=== PATIENT | male | born 1985 | race Caucasian/White ===

== ENCOUNTER 2017-04-27 17:56 | Observation (INO) | payer OTHER ==
[2017-04-27] MEDS ORDERED: Sodium Chloride 0.9% 1000 ML 1,000 ML ONE (18:14)
[2017-04-27] MEDS ORDERED: Sodium Chloride 0.9% 1000 ML 1,000 ML IV STA (18:23)
--- NOTE | 2017-04-27 18:32 | ERPHSYRPT ---
- History of Present Illness Time Seen by Provider: 04/27/17 18:22 Source: patient Exam Limitations: no limitations Patient Subjective Stated Complaint: holly just spoke weed and began having trouble breathing states he was dizzy feels like his body was shutting down. patient is chronic drug user states he did meth yesterday, but none today , hes not sure but could be a bad batch Triage Nursing Assessment: pt alert and oriented x3, lung sounds clear, patient was breathing rapidly upon arrival upon arrival, got patient calmed down and is laying in bed breathing slowly, pupils perrla2, holly able to walk but is very shaky, skin wamr dry nad intact Physician History: This 31-year-old white male with history of substance abuse asthma. He arrives hyperventilating. Patient's tells the nurse that he had used marijuana shortly before arrival he became severely short of breath felt like his body was shutting down. States he's been using methamphetamine yesterday. No fevers no nausea no vomiting. Past medical history includes substance abuse, asthma, anxiety, bipolar, depression,. Patient apparently uses a mess amphetamines baths NARCOTICS. Past surgical history is negative Timing/Duration: today Severity: moderate Modifying Factors: Improves With: nothing Associated Symptoms: shortness of breath, malaise, weakness, No nausea, No vomiting, No abdominal pain, No heartburn, No diaphoresis, No cough, No chills, No chest pain, No fever, No headaches, No loss of appetite, No rash, No syncope , No seizure Allergies/Adverse Reactions: No Known Drug Allergies Allergy (Unverified 04/27/17 18:33) Home Medications: No Reportable Medications [No Reported Medications] 04/27/17 [History] Hx Tetanus, Diphtheria Vaccination/Date Given: No Hx Influenza Vaccination/Date Given: No Hx Pneumococcal Vaccination/Date Given: No Immunizations Up to Date: No - Review of Systems Constitutional: Weakness, No Fever, No Chills Eyes: No Symptoms Ears, Nose, & Throat: No Symptoms Respiratory: Dyspnea, No Cough, No Cyanosis, No Stridor, No Wheezing Cardiac: No Chest Pain, No Edema, No Syncope Abdominal/Gastrointestinal: No Abdominal Pain, No Nausea, No Vomiting, No Diarrhea Genitourinary Symptoms: No Dysuria Musculoskeletal: No Back Pain, No Neck Pain Skin: No Rash Neurological: No Dizziness, No Focal Weakness, No Sensory Changes Psychological: Drug Abuse, Anxiety Endocrine: No Symptoms All Other Systems: Reviewed and Negative - Past Medical History Pertinent Past Medical History: Yes Respiratory History: Asthma Psycho-Social History: Anxiety, Bipolar, Depression - Past Surgical History Past Surgical History: No - Social History Smoking Status: Current every day smoker How long have you smoked: 12 Exposure to second hand smoke: Yes Drug Use: marijuana, bath salts, methamphetamines, narcotics, other Patient Lives Alone: No - Nursing Vital Signs Nursing Vital Signs: Initial Vital Signs Temperature 97.4 F 04/27/17 17:57 Pulse Rate 88 04/27/17 17:57 Respiratory Rate 18 04/27/17 17:57 Blood Pressure 158/79 04/27/17 17:57 O2 Sat by Pulse Oximetry 99 04/27/17 17:57 Pain Scale Pain Intensity 4 - Physical Exam General Appearance: other (patient arrives very anxious and hyperventilating however he is no longer hyperventilating at this time and talks in a soft voice ) Eye Exam: PERRL/EOMI, eyes nml inspection Ears, Nose, Throat Exam: normal ENT inspection, TMs normal, pharynx normal, moist mucous membranes Neck Exam: normal inspection, non-tender, supple, full range of motion Respiratory Exam: normal breath sounds, lungs clear, No respiratory distress Cardiovascular Exam: regular rate/rhythm, normal heart sounds, normal peripheral pulses Gastrointestinal/Abdomen Exam: soft, normal bowel sounds, No tenderness, No mass Back Exam: normal inspection Extremity Exam: normal inspection, normal range of motion, pelvis stable Neurologic Exam: alert, oriented x 3, cooperative, intraoperative neuro tech II-XII nml as tested, normal mood/affect, nml cerebellar function, nml station & gait, sensation nml, No motor deficits Skin Exam: normal color, warm, dry, No rash SpO2 Interpretation: normal (99%) SpO2: 99 Oxygen Delivery: Room Air - Course Nursing assessment & vital signs reviewed: Yes EKG Interpreted by Me: RATE (78 bpm), Sinus Rhythm, NORMAL AXIS, Other (EKG normal sinus rhythm 78 bpm, normal axis, diminished QRS complexes in aVL AND UNCHANGED FROM October 28, [address] or T wave changes are noted essentially normal EKG) - Radiology Exams Chest X-ray Interpretation: Interpreted by me, Other (cxr: no acute disease process noted) Ordered Tests: Active Orders 24 hr Category Date Time Status Director Of Global Sales STAT Care 04/27/17 18:31 Active EKG-ER Only STAT Care 04/27/17 18:31 Active IV Insertion STAT Care 04/27/17 18:23 Active Pulse Oximetry (ED) STAT Care 04/27/17 18:31 Active CHEST 1 VIEW (PORTABLE) Stat Exams 04/27/17 18:24 Taken ACETAMINOPHEN Stat Lab 04/27/17 18:30 Completed CBC W DIFF Stat Lab 04/27/17 18:30 Completed CK-Creatinine Phosphokinase Stat Lab 04/27/17 18:30 Completed CMP Stat Lab 04/27/17 18:30 Completed D-DIMER QUANTITATION Stat Lab 04/27/17 18:23 Received ETHYL ALCOHOL Stat Lab 04/27/17 18:30 Completed SALICYLATE Stat Lab 04/27/17 18:30 Completed TROPONIN Q3H Lab 04/27/17 18:30 Completed TROPONIN Q3H Lab 04/27/17 21:30 Ordered TROPONIN Q3H Lab 04/28/17 00:30 Ordered TROPONIN Q3H Lab 04/28/17 03:30 Ordered TROPONIN Q3H Lab 04/28/17 06:30 Ordered UA W/RFX UR CULTURE Stat Lab 04/27/17 18:30 Completed Urine Triage Profile Stat Lab 04/27/17 18:30 Completed Respiratory Nebulizer STAT RT 04/27/17 18:34 Completed Transfer Order Routine Transfer 04/27/17 Ordered Medication Summary Discontinued Medications Generic Name Dose Route Start Last Admin Trade Name Freq PRN Reason Stop Dose Admin Albuterol/Ipratropium 3 ml 04/27/17 18:33 04/27/17 18:45 Duoneb 0.5-3 Mg/3 Ml Neb IH 04/27/17 18:34 3 ml STAT ONE Administration Albuterol/Ipratropium Confirm 04/27/17 18:42 Duoneb 0.5-3 Mg/3 Ml Neb Administered 04/27/17 18:43 Dose 3 ml IH .STK-MED ONE Sodium Chloride Confirm 04/27/17 18:14 Sodium Chloride 0.9% 1000 Ml Administered 04/27/17 18:15 Dose 1,000 mls @ ud .ROUTE .STK-MED ONE Sodium Chloride 1,000 mls @ 999 mls/hr 04/27/17 18:23 04/27/17 18:34 Sodium Chloride 0.9% 1000 Ml IV 04/27/17 19:23 999 mls/hr .Q1H1M STA Administration Lab/Rad Data: Laboratory Result Diagrams 04/27/17 18:30 04/27/17 18:30 Laboratory Results 04/27/17 04/27/17 04/27/17 Range/Units 18:30 18:30 18:30 WBC 6.8 (4.0-10.5) K/mm3 RBC 4.76 (4.1-5.6) M/mm3 Hgb 15.6 (12.5-18.0) gm/dl Hct 45.4 (42-50) % MCV 95.4 (78-100) fl MCH 32.8 H (26-32) pg MCHC 34.4 (32-36) g/dl RDW 11.8 (11.5-14.0) % Plt Count 309 (150-450) K/mm3 MPV 10.5 H (6-9.5) fl Gran % 66.9 H (36.0-66.0) % Lymphocytes % 23.9 L (24.0-44.0) % Monocytes % 8.0 (0.0-12.0) % Eosinophils % 0.6 (0.00-5.0) % Basophils % 0.6 (0.0-0.4) % Basophils # 0.04 (0-0.4) Sodium 138 (136-145) mEq/L Potassium 3.5 (3.5-5.1) mEq/L Chloride 101 (98-107) mEq/L Carbon Dioxide 26.2 (21-32) mEq/L Anion Gap 13.8 (5-15) MEQ/L BUN 9 (9-20) mg/dL Creatinine 0.94 (0.55-1.30) mg/dl Estimated GFR > 60 ML/MIN Glucose 108 (70-110) MG/DL Calcium 9.5 (8.5-10.1) mg/dL Total Bilirubin 0.40 (0.2-1.0) mg/dL AST 16 (15-37) U/L ALT 23 (12-78) U/L Alkaline Phosphatase 57 (46-116) U/L Creatine Kinase 77 (39-308) U/L Troponin I < 0.017 (0.000-0.056) ng/ml Serum Total Protein 7.7 (6.4-8.2) gm/dL Albumin 3.8 (3.4-5.0) g/dL Ur Collection Type Urine Color (YELLOW) Urine Appearance (CLEAR) Urine pH (5-6) Ur Specific Celina (1.005-1.025) Urine Protein (Negative) Urine Ketones (NEGATIVE) Urine Blood (0-5) Wolfgang/ul Urine Nitrite (NEGATIVE) Urine Bilirubin (NEGATIVE) Urine Urobilinogen (0-1) mg/dL Ur Leukocyte Esterase (NEGATIVE) Urine Culture Reflexed (NO) Urine Glucose (NEGATIVE) mg/dL Salicylates 2.8 (2.8-20.0) mg/dl Urine Opiates Level (NEGATIVE) Ur Methadone (NEGATIVE) Acetaminophen < 2.0 L (10-30) ug/ml Urine Barbiturates (NEGATIVE) Ur Phencyclidine (PCP) (NEGATIVE) Urine Amphetamine (NEGATIVE) U Benzodiazepine Level (NEGATIVE) Urine Cocaine (NEGATIVE) Urine Marijuana (THC) (NEGATIVE) Ethyl Alcohol < 0.010 (0.00-0.01) % Specimen Received 04/27/17 04/27/17 Range/Units 18:30 18:30 WBC (4.0-10.5) K/mm3 RBC (4.1-5.6) M/mm3 Hgb (12.5-18.0) gm/dl Hct (42-50) % MCV (78-100) fl MCH (26-32) pg MCHC (32-36) g/dl RDW (11.5-14.0) % Plt Count (150-450) K/mm3 MPV (6-9.5) fl Gran % (36.0-66.0) % Lymphocytes % (24.0-44.0) % Monocytes % (0.0-12.0) % Eosinophils % (0.00-5.0) % Basophils % (0.0-0.4) % Basophils # (0-0.4) Sodium (136-145) mEq/L Potassium (3.5-5.1) mEq/L Chloride (98-107) mEq/L Carbon Dioxide (21-32) mEq/L Anion Gap (5-15) MEQ/L BUN (9-20) mg/dL Creatinine (0.55-1.30) mg/dl Estimated GFR ML/MIN Glucose (70-110) MG/DL Calcium (8.5-10.1) mg/dL Total Bilirubin (0.2-1.0) mg/dL AST (15-37) U/L ALT (12-78) U/L Alkaline Phosphatase (46-116) U/L Creatine Kinase (39-308) U/L Troponin I (0.000-0.056) ng/ml Serum Total Protein (6.4-8.2) gm/dL Albumin (3.4-5.0) g/dL Ur Collection Type CCMS Urine Color YELLOW (YELLOW) Urine Appearance CLEAR (CLEAR) Urine pH 8.0 (5-6) Ur Specific Cel[place] 1.005 (1.005-1.025) Urine Protein NEGATIVE (Negative) Urine Ketones NEGATIVE (NEGATIVE) Urine Blood NEGATIVE (0-5) Wolfgang/ul Urine Nitrite NEGATIVE (NEGATIVE) Urine Bilirubin NEGATIVE (NEGATIVE) Urine Urobilinogen NORMAL (0-1) mg/dL Ur Leukocyte Esterase NEGATIVE (NEGATIVE) Urine Culture Reflexed NO (NO) Urine Glucose NEGATIVE (NEGATIVE) mg/dL Salicylates (2.8-20.0) mg/dl Urine Opiates Level NEG. (NEGATIVE) Ur Methadone NEG. (NEGATIVE) Acetaminophen (10-30) ug/ml Urine Barbiturates NEG. (NEGATIVE) Ur Phencyclidine (PCP) NEG. (NEGATIVE) Urine Amphetamine POS. (NEGATIVE) U Benzodiazepine Level NEG. (NEGATIVE) Urine Cocaine NEG. (NEGATIVE) Urine Marijuana (THC) POS. (NEGATIVE) Ethyl Alcohol (0.00-0.01) % Specimen Received 04-27-17 1835 - Progress Progress: improved Progress Note: 04/27/17 19:17 31-year-old white male with history of substance abuse arrives with complaint of feeling short of breath Patient states he's been using amphetamines yesterday today he was smoking marijuana and became severely short of breath. Patient was hyperventilating when he walked in he now is talking in a very quiet voice states he feels like he can't breathe patient has normal vital signs sensory normal chemistries essentially normal urine drug screen is positive for amphetamines [id number] when. EKG no acute changes are noted Patient was given a DuoNeb treatment chest x-ray is unremarkable. Will discuss case with Dr. Freedman 04/27/17 19:28 Patient states that he feels short of breath and weak. Lungs are clear. Labs are essentially normal with the exception of the positive marijuana and positive for methamphetamines. I've discussed the case with Dr. Freedman will place on observation continue serial troponins Continue nebulizer treatments. Will obtain a repeat acetaminophen level in 4 hours. - Departure Time of Disposition: 19:31 Departure Disposition: Observation Clinical Impression: Shortness of breath, Substance abuse, History of asthma Condition: Fair Critical Care Time: No Referrals: LAZARO ALVAREZ MD [NON-STAFF PHY W/O PRIVILEGES] -
[2017-04-27] MEDS ORDERED: DUONEB 0.5-3 MG/3 ml Neb IH ONE ×2 (18:33→18:42)
[2017-04-27 18:36] LABS: BASOPHIL % 0.6 % (0.0-0.4); Basophil (Absolute #) 0.04 (0-0.4); Eosinophil % 0.6 % (0.00-5.0); Eosinophil (Absolute #) 0.04 (0-0.5); Granulocyte Absolute (ANC) 4.54 (1.4-6.9); Granulocytes % 66.9 % (36.0-66.0); Hematocrit 45.4 % (42-50); Hemoglobin 15.6 gm/dl (12.5-18.0); Lymphocyte (Absolute #) 1.62 (1.0-4.6); Lymphocytes % 23.9 % (24.0-44.0); Mean Cell Volume 95.4 fl (78-100); Mean Corpuscular Hemoglobin 32.8 pg (26-32); Mean Corpuscular Hgb Concent. 34.4 g/dl (32-36); Mean Platelet Volume 10.5 fl (6-9.5); Monocyte (Absolute #) 0.54 (0.0-1.3); Platelet Count 309 K/mm3 (150-450); Red Blood Count 4.76 M/mm3 (4.1-5.6); Red Cell Distribution Width 11.8 % (11.5-14.0); White Blood Count 6.8 K/mm3 (4.0-10.5)
[2017-04-27 18:37] LABS: Appearance CLEAR (CLEAR); Bilirubin NEGATIVE (NEGATIVE); Blood NEGATIVE Ery/ul (0-5); Glucose NEGATIVE (NEGATIVE); Ketones NEGATIVE (NEGATIVE); Leukocyte Esterase NEGATIVE (NEGATIVE); Nitrite NEGATIVE (NEGATIVE); Protein,Urine Dip NEGATIVE (Negative); Specific Gravity 1.005 (1.005-1.025); Urobilinogen NORMAL mg/dL (0-1)
[2017-04-27 18:50] LABS: Amphetamine,Urine POS. (NEGATIVE); Barbiturate,Urine NEG. (NEGATIVE); Benzodiazepine,Urine NEG. (NEGATIVE); Cocaine,Urine NEG. (NEGATIVE); Methadone,Urine NEG. (NEGATIVE); Opiate,Urine NEG. (NEGATIVE); PCP,Urine NEG. (NEGATIVE); THC,Urine POS. (NEGATIVE)
[2017-04-27 19:04] LABS: ALBUMIN 3.8 g/dL (3.4-5.0); ALKALINE PHOSPHATASE 57 U/L (46-116); ANION GAP 13.8 MEQ/L (5-15); BLOOD UREA NITROGEN 9 mg/dL (9-20); CHLORIDE 101 mEq/L (98-107); CK-Creatinine Phosphokinase 77 U/L (39-308); Calcium 9.5 mg/dL (8.5-10.1); Carbon Dioxide 26.2 mEq/L (21-32); Creatinine 1 0.94 mg/dl (0.55-1.30); EST GLOMERULAR FILTRATION RATE > 60 ML/MIN; ETHYL ALCOHOL < 0.010 % (0.00-0.01); Glucose 108 MG/DL (70-110); Potassium 3.5 mEq/L (3.5-5.1); SALICYLATE 2.8 mg/dl (2.8-20.0); SGOT/AST 16 U/L (15-37); SGPT/ALT 23 U/L (12-78); SODIUM 138 mEq/L (136-145); Total Protein 7.7 gm/dL (6.4-8.2)
[2017-04-27 19:11] LABS: ACETAMINOPHEN < 2.0 ug/ml (10-30)
[2017-04-27] MEDS ORDERED: DUONEB 0.5-3 MG/3 ml Neb IH PRN (20:09)
[2017-04-27] MEDS: Sodium Chloride 0.9% 1000 ML 1,000 ML IV SCH (20:44)
[2017-04-27] MEDS ORDERED: Ativan 2 MG/1 ML VIAL IV PRN (20:57)
[2017-04-27] MEDS ORDERED: NICODERM CQ 14 MG TOP SCH (21:00)
[2017-04-28 04:07] LABS: ALBUMIN 3.3 g/dL (3.4-5.0); ALKALINE PHOSPHATASE 53 U/L (46-116); ANION GAP 9.9 MEQ/L (5-15); BASOPHIL % 0.7 % (0.0-0.4); BLOOD UREA NITROGEN 8 mg/dL (9-20); Basophil (Absolute #) 0.04 (0-0.4); CHLORIDE 109 mEq/L (98-107); Calcium 8.7 mg/dL (8.5-10.1); Carbon Dioxide 29.2 mEq/L (21-32); Creatinine 1 0.83 mg/dl (0.55-1.30); EST GLOMERULAR FILTRATION RATE > 60 ML/MIN; Eosinophil % 2.1 % (0.00-5.0); Eosinophil (Absolute #) 0.12 (0-0.5); Glucose 84 MG/DL (70-110); Granulocyte Absolute (ANC) 3.09 (1.4-6.9); Granulocytes % 54.1 % (36.0-66.0); Hemoglobin 14.7 gm/dl (12.5-18.0); Lymphocyte (Absolute #) 1.73 (1.0-4.6); Lymphocytes % 30.2 % (24.0-44.0); Mean Corpuscular Hemoglobin 32.7 pg (26-32); Mean Corpuscular Hgb Concent. 33.4 g/dl (32-36); Mean Platelet Volume 10.8 fl (6-9.5); Monocyte (Absolute #) 0.74 (0.0-1.3); Monocytes % 12.9 % (0.0-12.0); Platelet Count 273 K/mm3 (150-450); Potassium 4.7 mEq/L (3.5-5.1); Red Blood Count 4.49 M/mm3 (4.1-5.6); SGOT/AST 13 U/L (15-37); SGPT/ALT 17 U/L (12-78); SODIUM 143 mEq/L (136-145); Total Protein 6.1 gm/dL (6.4-8.2); White Blood Count 5.7 K/mm3 (4.0-10.5)
[2017-04-28] MEDS: Sodium Chloride 0.9% 1000 ML 1,000 ML IV SCH (06:24)
[2017-04-28 07:30] VITALS: BP 114/61; PULSE 66; O2SAT 98
--- NOTE | 2017-04-28 08:32 | XRAY ---
Indication: Short of breath. Syncope. Comparison: October 28, 2014. Portable chest again demonstrates normal heart and lungs. Bony thorax intact.
--- NOTE | 2017-04-28 08:32 | PCM.SSS ---
History of Present Illness - Chief Complaint Chief Complaint: SOB, substance abuse History of Present Illness: is a 31 year old male with no local physician who presented to the ER complaining of shortness of breath, tightness in his chest. He states he has a history of asthma and anxiety. He uses methamphetamine, was released from [facility] 2 months ago and has not had any insurance since that time so not on meds. States he was on xanax for years, he thinks he was just "freaked out". He admits to a great deal of stress, cardiac enzymes were negative, d-dimer was normal. He denies shortness of breath, has had some cough with yellow sputum production. - Review of Systems Constitutional: No Fever, No Chills Respiratory: Cough, Short Of Breath Cardiac: No Chest Pain, No Edema, No Syncope Abdominal/Gastrointestinal: No Abdominal Pain, No Nausea, No Vomiting, No Diarrhea Genitourinary Symptoms: No Dysuria Skin: No Rash All Other Systems: Reviewed and Negative Medications & Allergies Home Medications: Home Medication List Albuterol Sulfate [Albuterol Sulfate Hfa] 2 puffs IH Q4-6HPRN PRN #1 [email or web address] 04/28/17 [Rx] Azithromycin [Zithromax] 250 mg PO UD #6 tablet 04/28/17 [Rx] Allergies/Adverse Reactions: Allergies Allergy/AdvReac Type Severity Reaction Status Date / Time No Known Drug Allergies Allergy Unverified 04/27/17 18:33 - Past Medical History Past Medical History: Yes Respiratory History: Asthma Pyscho-Social History: Anxiety, Bipolar, Depression - Past Surgical History Past Surgical History: No - Social History Smoking Status: Current every day smoker How long have you smoked: 12 Exposure to second hand smoke: Yes Alcohol: Daily Drug Use: marijuana, bath salts, methamphetamines, narcotics, other - Physical Exam Vital Signs: Vital Signs - 24 hr Temp Pulse Resp BP BP Pulse Ox 04/28/17 07:29 98.1 F 66 18 114/61 98 04/28/17 07:12 94 L 04/28/17 04:00 97.6 F 81 18 128/63 97 04/27/17 23:31 98.6 F 75 20 133/64 97 04/27/17 21:01 75 16 98 04/27/17 20:17 78 18 143/68 97 04/27/17 19:40 99 04/27/17 19:04 78 16 100 04/27/17 18:50 98.5 F 78 16 143/77 100 04/27/17 18:47 98.5 F 79 18 143/77 99 04/27/17 18:31 100 04/27/17 17:57 97.4 F 88 18 158/79 99 General Appearance: no apparent distress, alert Respiratory Exam: normal breath sounds, lungs clear, No respiratory distress Cardiovascular Exam: regular rate/rhythm, normal heart sounds, normal peripheral pulses Gastrointestinal/Abdomen Exam: soft, normal bowel sounds, No tenderness, No mass Extremity Exam: normal inspection, normal range of motion, pelvis stable Skin Exam: normal color, warm, dry, No rash Results - Labs Lab/Micro Results: Lab Results-Last 24 Hours 04/27/17 04/28/17 04/28/17 Range/Units 21:09 00:19 03:20 WBC (4.0-10.5) K/mm3 RBC (4.1-5.6) M/mm3 Hgb (12.5-18.0) gm/dl Hct (42-50) % MCV (78-100) fl MCH (26-32) pg MCHC (32-36) g/dl RDW (11.5-14.0) % Plt Count (150-450) K/mm3 MPV (6-9.5) fl Gran % (36.0-66.0) % Lymphocytes % (24.0-44.0) % Monocytes % (0.0-12.0) % Eosinophils % (0.00-5.0) % Basophils % (0.0-0.4) % Basophils # (0-0.4) Sodium (136-145) mEq/L Potassium (3.5-5.1) mEq/L Chloride (98-107) mEq/L Carbon Dioxide (21-32) mEq/L Anion Gap (5-15) MEQ/L BUN (9-20) mg/dL Creatinine (0.55-1.30) mg/dl Estimated GFR ML/MIN Glucose (70-110) MG/DL Calcium (8.5-10.1) mg/dL Total Bilirubin (0.2-1.0) mg/dL AST (15-37) U/L ALT (12-78) U/L Alkaline Phosphatase (46-116) U/L Troponin I < 0.017 < 0.017 < 0.017 (0.000-0.056) ng/ml Serum Total Protein (6.4-8.2) gm/dL Albumin (3.4-5.0) g/dL 04/28/17 04/28/17 Range/Units 03:20 03:20 WBC 5.7 (4.0-10.5) K/mm3 RBC 4.49 (4.1-5.6) M/mm3 Hgb 14.7 (12.5-18.0) gm/dl Hct 44.0 (42-50) % MCV 98.0 (78-100) fl MCH 32.7 H (26-32) pg MCHC 33.4 (32-36) g/dl RDW 12.0 (11.5-14.0) % Plt Count 273 (150-450) K/mm3 MPV 10.8 H (6-9.5) fl Gran % 54.1 (36.0-66.0) % Lymphocytes % 30.2 (24.0-44.0) % Monocytes % 12.9 H (0.0-12.0) % Eosinophils % 2.1 (0.00-5.0) % Basophils % 0.7 (0.0-0.4) % Basophils # 0.04 (0-0.4) Sodium 143 (136-145) mEq/L Potassium 4.7 (3.5-5.1) mEq/L Chloride 109 H (98-107) mEq/L Carbon Dioxide 29.2 (21-32) mEq/L Anion Gap 9.9 (5-15) MEQ/L BUN 8 L (9-20) mg/dL Creatinine 0.83 (0.55-1.30) mg/dl Estimated GFR > 60 ML/MIN Glucose 84 (70-110) MG/DL Calcium 8.7 (8.5-10.1) mg/dL Total Bilirubin 0.30 (0.2-1.0) mg/dL AST 13 L (15-37) U/L ALT 17 (12-78) U/L Alkaline Phosphatase 53 (46-116) U/L Troponin I (0.000-0.056) ng/ml Serum Total Protein 6.1 L (6.4-8.2) gm/dL Albumin 3.3 L (3.4-5.0) g/dL - Other Procedures and Tests Respiratory Therapy 04/27/17 20:59 Respiratory Nebulizer UD Assessment/Plan (1) Acute bronchitis Current Visit: Yes Status: Acute Assessment & Plan: d/c home on z-elena and albuterol hfa Code(s): J20.9 - ACUTE BRONCHITIS, UNSPECIFIED (2) Anxiety Current Visit: Yes Status: Acute Assessment & Plan: offered [facility] consult for anxiety and substance abuse, patient declines. states he will go as an outpatient but doesn't want to see a counselor this morning. Code(s): F41.9 - ANXIETY DISORDER, UNSPECIFIED (3) History of asthma Current Visit: Yes Status: Acute Code(s): Z87.09 - PERSONAL HISTORY OF OTHER DISEASES OF THE RESPIRATORY SYSTEM (4) Shortness of breath Current Visit: Yes Status: Acute Code(s): R06.02 - SHORTNESS OF BREATH (5) Substance abuse Current Visit: Yes Status: Acute Code(s): F19.10 - OTHER PSYCHOACTIVE SUBSTANCE ABUSE, UNCOMPLICATED Hospital Summary - Vitals & Intake/Output Vital Signs: Vital Signs Temperature 98.1 F 04/28/17 07:29 Pulse Rate 66 04/28/17 07:29 Respiratory Rate 18 04/28/17 07:29 Blood Pressure 114/61 04/28/17 07:29 O2 Sat by Pulse Oximetry 98 04/28/17 07:29 Intake & Output: Intake & Output 04/25/17 04/26/17 04/27/17 04/28/17 11:59 11:59 11:59 11:59 Intake Total 1674 Balance 1674 Weight 76.4 kg - Lab Result Diagrams: 04/28/17 03:20 04/28/17 03:20 Lab Results-Last 24 Hrs: Lab Results-Last 24 Hours 04/27/17 04/28/17 04/28/17 Range/Units 21:09 00:19 03:20 WBC (4.0-10.5) K/mm3 RBC (4.1-5.6) M/mm3 Hgb (12.5-18.0) gm/dl Hct (42-50) % MCV (78-100) fl MCH (26-32) pg MCHC (32-36) g/dl RDW (11.5-14.0) % Plt Count (150-450) K/mm3 MPV (6-9.5) fl Gran % (36.0-66.0) % Lymphocytes % (24.0-44.0) % Monocytes % (0.0-12.0) % Eosinophils % (0.00-5.0) % Basophils % (0.0-0.4) % Basophils # (0-0.4) Sodium (136-145) mEq/L Potassium (3.5-5.1) mEq/L Chloride (98-107) mEq/L Carbon Dioxide (21-32) mEq/L Anion Gap (5-15) MEQ/L BUN (9-20) mg/dL Creatinine (0.55-1.30) mg/dl Estimated GFR ML/MIN Glucose (70-110) MG/DL Calcium (8.5-10.1) mg/dL Total Bilirubin (0.2-1.0) mg/dL AST (15-37) U/L ALT (12-78) U/L Alkaline Phosphatase (46-116) U/L Troponin I < 0.017 < 0.017 < 0.017 (0.000-0.056) ng/ml Serum Total Protein (6.4-8.2) gm/dL Albumin (3.4-5.0) g/dL 04/28/17 04/28/17 Range/Units 03:20 03:20 WBC 5.7 (4.0-10.5) K/mm3 RBC 4.49 (4.1-5.6) M/mm3 Hgb 14.7 (12.5-18.0) gm/dl Hct 44.0 (42-50) % MCV 98.0 (78-100) fl MCH 32.7 H (26-32) pg MCHC 33.4 (32-36) g/dl RDW 12.0 (11.5-14.0) % Plt Count 273 (150-450) K/mm3 MPV 10.8 H (6-9.5) fl Gran % 54.1 (36.0-66.0) % Lymphocytes % 30.2 (24.0-44.0) % Monocytes % 12.9 H (0.0-12.0) % Eosinophils % 2.1 (0.00-5.0) % Basophils % 0.7 (0.0-0.4) % Basophils # 0.04 (0-0.4) Sodium 143 (136-145) mEq/L Potassium 4.7 (3.5-5.1) mEq/L Chloride 109 H (98-107) mEq/L Carbon Dioxide 29.2 (21-32) mEq/L Anion Gap 9.9 (5-15) MEQ/L BUN 8 L (9-20) mg/dL Creatinine 0.83 (0.55-1.30) mg/dl Estimated GFR > 60 ML/MIN Glucose 84 (70-110) MG/DL Calcium 8.7 (8.5-10.1) mg/dL Total Bilirubin 0.30 (0.2-1.0) mg/dL AST 13 L (15-37) U/L ALT 17 (12-78) U/L Alkaline Phosphatase 53 (46-116) U/L Troponin I (0.000-0.056) ng/ml Serum Total Protein 6.1 L (6.4-8.2) gm/dL Albumin 3.3 L (3.4-5.0) g/dL - Procedures and Test Procedures and Tests throughout Hospitalization: Therapy Orders & Screens 04/27/17 20:23 Smoking Cessation Education ONCE Comment: Diagnosis: SOB, substance abuse Smoking Status: Current every day smoker How long have you smoked: 12 Do you dip or chew tobacco: No 04/27/17 20:59 Respiratory Nebulizer UD Comment: DUONEB Q4PRN Diagnosis: SOB, substance abuse - Discharge Disposition: Home, Self-Care Condition: Good Prescriptions: New Albuterol Sulfate [Albuterol Sulfate Hfa] 2 puffs IH Q4-6HPRN PRN #1 hfa.aer.ad PRN Reason: Shortness Of Breath Azithromycin [Zithromax] 250 mg PO UD #6 tablet Additional Instructions: followup with the [facility] as an outpatient Follow up with: LAZARO ALVAREZ MD [NON-STAFF PHY W/O PRIVILEGES] -
== END 2017-04-28 10:00 | disposition home or self-care (01) ==
LOC: ED 17:56 → MED SURG 20:03
PROVIDERS: ADMIT Family Medicine; ATTEND Family Medicine
DX: J20.9 Acute bronchitis, unspecified (principal); F41.9 Anxiety disorder, unspecified; Z87.09 Personal history of other diseases of the respiratory system; R06.02 Shortness of breath; F19.10 Other psychoactive substance abuse, uncomplicated
CPT/HCPCS: 36000; 36415; 71045; 80053; 80307; 81002; 82550; 84484; 85025; 85379; 93005; 93041; 93268; 94150; 94640; 94760; 96374; 99285; G0378; G0481; A9270-GY

== ENCOUNTER 2018-07-15 07:30 | Emergency (ER) | payer MEDICAID, OTHER ==
[2018-07-15] MEDS ORDERED: Zofran 4 MG/2 ML VIAL IV ONE (07:43)
[2018-07-15] MEDS ORDERED: Sodium Chloride 0.9% 1000 ML 1,000 ML IV STA (07:43)
[2018-07-15] MEDS ORDERED: Narcan 0.4 MG/ML IV ONE (07:43)
[2018-07-15 07:44] LABS: VBG CARBOXYHEMOGLOBIN 5.2 % T HGB (0.0-6.9); VBG HCO3- 27.8 meq/L (22-28); VBG HEMOGLOBIN 14.3; VBG O2 SATURATION 57.6 (95-100); VBG POTASSIUM 3.5 (3.5-5.1)
[2018-07-15 07:45] LABS: VBG pH 7.56 (7.32-7.42)
[2018-07-15] MEDS ORDERED: Sodium Chloride 0.9% 1000 ML 1,000 ML ONE (07:53)
[2018-07-15] MEDS ORDERED: Narcan 0.4 MG/ML ONE ×2 (07:53→08:09)
[2018-07-15] MEDS ORDERED: Zofran 4 MG/2 ML VIAL ONE (07:53)
--- NOTE | 2018-07-15 07:58 | ERPHSYRPT ---
- History of Present Illness Time Seen by Provider: 07/15/18 07:31 Source: EMS, old records, other ([facility]) Exam Limitations: clinical condition, intoxication Patient Subjective Stated Complaint: EMS states "He was at a friends house and he was unresponsive, his pupils were dilated upon arrival, we gave 2 of narcan and he woke up a little." Triage Nursing Assessment: Pt presented via [facility]. Pt placed in room 2. Pt presented with eyes open, tachypneic, not speaking. Pt placed in room 2, temp priya jean placed, pt initially a Cash Cavanaugh, after about 5 minutes, pt was able to give his name and birthday. Pt not speakin much. Pt shaking. PT unable to answer all questions. Pt lethargic. Physician History: 32 y/o white male with h/o polysubstance abuse and anxiety. abuse of marijuana, bath salts, methamphetamines and narcotics in past. EMS called to [facility] because pt unresponsive. no details provided to ems about events and any drug use but did state there may have been some emotional stressors at his home. pt was given 2mg iv narcan by ems upon arrival and left EJ line placed. pt arrives by ems vss minimally responsive. however, within a few minutes pt able to provide up name, age and birthdate. denies suicidal intent or ideation. Timing/Duration: today Severity: moderate Associated Symptoms: denies symptoms, No nausea, No vomiting, No abdominal pain , No shortness of breath Allergies/Adverse Reactions: No Known Drug Allergies Allergy (Verified 07/15/18 08:33) Home Medications: Unobtainable 07/15/18 [History] Hx Tetanus, Diphtheria Vaccination/Date Given: (unknown) Hx Influenza Vaccination/Date Given: (unknown) Hx Pneumococcal Vaccination/Date Given: (unknown) Immunizations Up to Date: (unknown) - Review of Systems Constitutional: No Symptoms Eyes: No Symptoms Ears, Nose, & Throat: No Symptoms Respiratory: No Symptoms Cardiac: No Symptoms Abdominal/Gastrointestinal: No Symptoms Genitourinary Symptoms: No Symptoms Musculoskeletal: No Symptoms Skin: No Symptoms Neurological: Lethargy, Other (unresponsive upon arrival) Psychological: Drug Abuse, No Suicidal Ideations Endocrine: No Symptoms Hematologic/Lymphatic: No Symptoms Immunological/Allergic: No Symptoms All Other Systems: Reviewed and Negative - Past Medical History Pertinent Past Medical History: Yes Neurological History: No Pertinent History ENT History: No Pertinent History Cardiac History: No Pertinent History Respiratory History: Asthma Endocrine Medical History: No Pertinent History Musculoskeletal History: No Pertinent History GI Medical History: No Pertinent History History: No Pertinent History Psycho-Social History: Anxiety, Bipolar, Depression - Past Surgical History Past Surgical History: No Neuro Surgical History: No Pertinent History Cardiac: No Pertinent History Respiratory: No Pertinent History Gastrointestinal: No Pertinent History Genitourinary: No Pertinent History Musculoskeletal: No Pertinent History Male Surgical History: No Pertinent History - Social History Smoking Status: Unknown if ever smoked How long have you smoked: 12 Exposure to second hand smoke: (unknown) Drug Use: marijuana, bath salts, methamphetamines, narcotics, other Patient Lives Alone: (unknown) - Nursing Vital Signs Nursing Vital Signs: Initial Vital Signs Temperature 98.1 F 07/15/18 07:31 Pulse Rate 73 07/15/18 07:31 Respiratory Rate 20 07/15/18 07:31 Blood Pressure 165/81 07/15/18 07:31 O2 Sat by Pulse Oximetry 100 07/15/18 07:31 Pain Scale Pain Intensity 0 - Physical Exam General Appearance: lethargy Eye Exam: PERRL/EOMI, eyes nml inspection Ears, Nose, Throat Exam: normal ENT inspection, dry mucous membranes Neck Exam: normal inspection, non-tender, supple, full range of motion Respiratory Exam: normal breath sounds, lungs clear, airway intact, No chest tenderness, No respiratory distress Cardiovascular Exam: regular rate/rhythm, normal heart sounds, normal peripheral pulses Gastrointestinal/Abdomen Exam: soft, normal bowel sounds, No tenderness, No guarding Male Genitalia Exam: normal genitalia Rectal Exam: not done Back Exam: normal inspection, normal range of motion Extremity Exam: normal inspection, normal range of motion, pelvis stable Neurologic Exam: intoxicated appearance, other (unable to assess on initial exam. pt breathing on his own and cooperative but not answering questions) Skin Exam: No normal color, No warm, No dry Lymphatic Exam: No adenopathy SpO2 Interpretation: normal SpO2: 100 O2 Delivery: Room Air - Course Nursing assessment & vital signs reviewed: Yes EKG Interpreted by Me: RATE, NORMAL AXIS, NORMAL INTERVALS, NORMAL QRS, Non- specific ST Changes, Other (no sig change from comparison ekg 04/14/18) Ordered Tests: Active Orders 24 hr Category Date Time Status [facility] Justice STAT Care 07/15/18 07:45 Active Cath for Specimen-Straight STAT Care 07/15/18 07:46 Active EKG-ER Only STAT Care 07/15/18 07:43 Active Jean [Catheter-[place] Jean] STAT Care 07/15/18 07:47 Active IV Insertion STAT Care 07/15/18 07:43 Active Oxygen-ED Only Nasal Cannula 2 lpm Care 07/15/18 07:43 Active CHEST 1 VIEW (PORTABLE) Stat Exams 07/15/18 07:44 Taken HEAD WITHOUT CONTRAST [CT] Stat Exams 07/15/18 07:44 Taken ABG [ARTERIAL BLOOD GASES] Routine Lab 07/15/18 09:14 Completed ACETAMINOPHEN Stat Lab 07/15/18 07:43 Completed CBC W DIFF Stat Lab 07/15/18 07:43 Completed CMP Stat Lab 07/15/18 07:43 Completed ETHYL ALCOHOL Stat Lab 07/15/18 07:43 Completed SALICYLATE Stat Lab 07/15/18 07:43 Completed UA W/RFX UR CULTURE Stat Lab 07/15/18 07:49 Completed Urine Triage Profile Stat Lab 07/15/18 07:49 Completed VBG [VENOUS BLOOD GAS] Stat Lab 07/15/18 07:25 Completed Medication Summary Discontinued Medications Generic Name Dose Route Start Last Admin Trade Name Freq PRN Reason Stop Dose Admin Sodium Chloride 1,000 mls @ 999 mls/hr 07/15/18 07:43 07/15/18 09:35 Sodium Chloride 0.9% 1000 Ml IV 07/15/18 08:43 Infused .Q1H1M STA Infusion Sodium Chloride Confirm 07/15/18 07:53 Sodium Chloride 0.9% 1000 Ml Administered 07/15/18 07:54 Dose 1,000 mls @ ud .ROUTE .STK-MED ONE Naloxone HCl 0.4 mg 07/15/18 07:43 07/15/18 08:01 Narcan 0.4 Mg/Ml IV 07/15/18 07:44 0.4 mg STAT ONE Administration Naloxone HCl Confirm 07/15/18 07:53 Narcan 0.4 Mg/Ml Administered 07/15/18 07:54 Dose 0.4 mg .ROUTE .STK-MED ONE Naloxone HCl Confirm 07/15/18 08:09 Narcan 0.4 Mg/Ml Administered 07/15/18 08:10 Dose 0.4 mg .ROUTE .STK-MED ONE Naloxone HCl 2 mg 07/15/18 08:15 07/15/18 08:17 Narcan 2 Mg/2 Ml IV 07/15/18 08:16 2 mg STAT ONE Administration Naloxone HCl Confirm 07/15/18 08:16 Narcan 2 Mg/2 Ml Administered 07/15/18 08:17 Dose 2 mg .ROUTE .STK-MED ONE Ondansetron HCl 4 mg 07/15/18 07:43 07/15/18 07:55 Zofran 4 Mg/2 Ml Vial IV 07/15/18 07:44 4 mg STAT ONE Administration Ondansetron HCl Confirm 07/15/18 07:53 Zofran 4 Mg/2 Ml Vial Administered 07/15/18 07:54 Dose 4 mg .ROUTE .STK-MED ONE Lab/Rad Data: Laboratory Result Diagrams 07/15/18 07:43 07/15/18 07:43 Laboratory Results 07/15/18 07/15/18 07/15/18 Range/Units 09:14 07:49 07:49 WBC (4.0-10.5) K/mm3 RBC (4.1-5.6) M/mm3 Hgb (12.5-18.0) gm/dl Hct (42-50) % MCV (78-100) fl MCH (26-32) pg MCHC (32-36) g/dl RDW (11.5-14.0) % Plt Count (150-450) K/mm3 MPV (6-9.5) fl Gran % (36.0-66.0) % Eos # (Auto) (0-0.5) Absolute Lymphs (auto) (1.0-4.6) Absolute Monos (auto) (0.0-1.3) Lymphocytes % (24.0-44.0) % Monocytes % (0.0-12.0) % Eosinophils % (0.00-5.0) % Basophils % (0.0-0.4) % Absolute Granulocytes (1.4-6.9) Basophils # (0-0.4) Puncture Site RIGHT BRACHIAL pCO2 37 (35-45) mmHg pO2 128 H* (75-100) mmHg pO2/FiO2 Ratio % Base Excess 1.1 (-2.0-2.0) O2 Saturation 96.5 (94-100) g/dF ABG pH 7.44 (7.35-7.45) ABG HCO3 25.1 (22-28) ABG O2 Sat (Measured) 99.9 (95-100) % Lisandro Test NOT APPLICABLE VBG pH (7.32-7.42) VBG pCO2 at Pat Temp (42-55) mm/Hg VBG pO2 at Pat Temp (25-40) mm/Hg VBG HCO3 (22-28) meq/L VBG O2 Sat (Luisito) (95-100) VBG Base Excess (-2.0-2.0) VBG Hemoglobin VBG Carboxyhemoglobin (0.0-6.9) % T HGB A-a Gradient 25 a/A Ratio 0.84 Hemoglobin 13.8 Carboxyhemoglobin 3.3 (0.0-6.9) % THgb Methemoglobin 0.1 L (1.4-1.5) % POC Potassium (3.5-5.1) Temperature 37.0 C POC O2 Flow Rate 28 % Sodium (137-145) mmol/L Potassium 3.5 (3.5-5.1) mmol/L Chloride (98-107) mmol/L Carbon Dioxide (22-30) mmol/L Anion Gap (5-15) MEQ/L BUN (9-20) mg/dL Creatinine (0.66-1.25) mg/dL Estimated GFR ML/MIN Glucose (74-106) mg/dL Calcium (8.4-10.2) mg/dL Total Bilirubin (0.2-1.3) mg/dL AST (17-59) U/L ALT (0-50) U/L Alkaline Phosphatase (38-126) U/L Serum Total Protein (6.3-8.2) g/dL Albumin (3.5-5.0) g/dL Urine Color YELLOW (YELLOW) Urine Appearance SLIGHTLY CLOUDY (CLEAR) Urine pH 6.0 (5-6) Ur Specific Randolph 1.026 (1.005-1.025) Urine Protein NEGATIVE (Negative) Urine Ketones SMALL (NEGATIVE) Urine Blood NEGATIVE (0-5) Wolfgang/ul Urine Nitrite NEGATIVE (NEGATIVE) Urine Bilirubin NEGATIVE (NEGATIVE) Urine Urobilinogen 2 (0-1) mg/dL Ur Leukocyte Esterase NEGATIVE (NEGATIVE) Urine WBC (Auto) 0-2 (0-5) /HPF Urine RBC (Auto) 3-5 (0-2) /HPF U Epithel Cells (Auto) NONE (FEW) /HPF Urine Bacteria (Auto) NONE (NEGATIVE) /HPF Urine Mucus (Auto) SLIGHT (NEGATIVE) /HPF Urine Culture Reflexed NO (NO) Urine Glucose NEGATIVE (NEGATIVE) mg/dL Salicylates (2-20) mg/dL Urine Opiates Level NEGATIVE (NEGATIVE) Ur Methadone NEGATIVE (NEGATIVE) Acetaminophen (10-30) ug/ml Urine Barbiturates NEGATIVE (NEGATIVE) Ur Phencyclidine (PCP) NEGATIVE (NEGATIVE) Urine Amphetamine POSITIVE (NEGATIVE) U Benzodiazepine Level POSITIVE (NEGATIVE) Urine Cocaine NEGATIVE (NEGATIVE) Urine Marijuana (THC) POSITIVE (NEGATIVE) Ethyl Alcohol (0-10) mg/dL 07/15/18 07/15/18 07/15/18 Range/Units 07:43 07:43 07:25 WBC 5.1 (4.0-10.5) K/mm3 RBC 4.37 (4.1-5.6) M/mm3 Hgb 14.2 (12.5-18.0) gm/dl Hct 40.9 L (42-50) % MCV 93.6 (78-100) fl MCH 32.5 H (26-32) pg MCHC 34.7 (32-36) g/dl RDW 12.1 (11.5-14.0) % Plt Count 220 (150-450) K/mm3 MPV 10.0 H (6-9.5) fl Gran % 65.0 (36.0-66.0) % Eos # (Auto) 0.07 (0-0.5) Absolute Lymphs (auto) 0.85 L (1.0-4.6) Absolute Monos (auto) 0.83 (0.0-1.3) Lymphocytes % 16.6 L (24.0-44.0) % Monocytes % 16.2 H (0.0-12.0) % Eosinophils % 1.4 (0.00-5.0) % Basophils % 0.8 (0.0-0.4) % Absolute Granulocytes 3.34 (1.4-6.9) Basophils # 0.04 (0-0.4) Puncture Site pCO2 (35-45) mmHg pO2 (75-100) mmHg pO2/FiO2 Ratio 28.0 % Base Excess (-2.0-2.0) O2 Saturation (94-100) g/dF ABG pH (7.35-7.45) ABG HCO3 (22-28) ABG O2 Sat (Measured) (95-100) % Lisandro Test VBG pH 7.56 H* (7.32-7.42) VBG pCO2 at Pat Temp 31 L (42-55) mm/Hg VBG pO2 at Pat Temp 23 L (25-40) mm/Hg VBG HCO3 27.8 (22-28) meq/L VBG O2 Sat (Luisito) 57.6 L (95-100) VBG Base Excess 6.0 H (-2.0-2.0) VBG Hemoglobin 14.3 VBG Carboxyhemoglobin 5.2 (0.0-6.9) % T HGB A-a Gradient a/A Ratio Hemoglobin Carboxyhemoglobin (0.0-6.9) % THgb Methemoglobin (1.4-1.5) % POC Potassium 3.5 (3.5-5.1) Temperature C POC O2 Flow Rate % Sodium 140 (137-145) mmol/L Potassium 3.7 (3.5-5.1) mmol/L Chloride 104 (98-107) mmol/L Carbon Dioxide 24 (22-30) mmol/L Anion Gap 15.3 H (5-15) MEQ/L BUN 13 (9-20) mg/dL Creatinine 0.68 (0.66-1.25) mg/dL Estimated GFR > 60.0 ML/MIN Glucose 96 (74-106) mg/dL Calcium 9.7 (8.4-10.2) mg/dL Total Bilirubin 0.90 (0.2-1.3) mg/dL AST 71 H (17-59) U/L ALT 79 H (0-50) U/L Alkaline Phosphatase 57 (38-126) U/L Serum Total Protein 7.6 (6.3-8.2) g/dL Albumin 4.2 (3.5-5.0) g/dL Urine Color (YELLOW) Urine Appearance (CLEAR) Urine pH (5-6) Ur Specific Randolph (1.005-1.025) Urine Protein (Negative) Urine Ketones (NEGATIVE) Urine Blood (0-5) Wolfgang/ul Urine Nitrite (NEGATIVE) Urine Bilirubin (NEGATIVE) Urine Urobilinogen (0-1) mg/dL Ur Leukocyte Esterase (NEGATIVE) Urine WBC (Auto) (0-5) /HPF Urine RBC (Auto) (0-2) /HPF U Epithel Cells (Auto) (FEW) /HPF Urine Bacteria (Auto) (NEGATIVE) /HPF Urine Mucus (Auto) (NEGATIVE) /HPF Urine Culture Reflexed (NO) Urine Glucose (NEGATIVE) mg/dL Salicylates < 1.0 L (2-20) mg/dL Urine Opiates Level (NEGATIVE) Ur Methadone (NEGATIVE) Acetaminophen < 10 L (10-30) ug/ml Urine Barbiturates (NEGATIVE) Ur Phencyclidine (PCP) (NEGATIVE) Urine Amphetamine (NEGATIVE) U Benzodiazepine Level (NEGATIVE) Urine Cocaine (NEGATIVE) Urine Marijuana (THC) (NEGATIVE) Ethyl Alcohol < 10 (0-10) mg/dL - Progress Progress: improved, re-examined Progress Note: 07/15/18 11:25 pt is awake alert and oriented. pt states he was not attempting suicide. he did use methamphetamines. pt states he is under a lot of stress and was just trying to alliance party and get away from his stressors. he is aware he has a drug problem. pt spoke to his father on the phone. Counseled pt/family regarding: lab results, diagnosis, need for follow-up, rad results - Departure Departure Disposition: Home Clinical Impression: Polysubstance abuse, Panic disorder Condition: Stable Critical Care Time: No Referrals: DOCTOR,NO FAMILY [Primary Care Provider] -
[2018-07-15] MEDS ORDERED: NARCAN 2 MG/2 ML IV ONE (08:15)
[2018-07-15 08:16] LABS: Barbiturate,Urine NEGATIVE (NEGATIVE); Benzodiazepine,Urine POSITIVE (NEGATIVE); Cocaine,Urine NEGATIVE (NEGATIVE); Methadone,Urine NEGATIVE (NEGATIVE); Opiate,Urine NEGATIVE (NEGATIVE); PCP,Urine NEGATIVE (NEGATIVE); THC,Urine POSITIVE (NEGATIVE)
[2018-07-15] MEDS ORDERED: NARCAN 2 MG/2 ML ONE (08:16)
[2018-07-15 08:17] LABS: Appearance SLIGHTLY CLOUDY (CLEAR); Bilirubin NEGATIVE (NEGATIVE); Blood NEGATIVE Ery/ul (0-5); Glucose NEGATIVE (NEGATIVE); Ketones SMALL (NEGATIVE); Leukocyte Esterase NEGATIVE (NEGATIVE); Mucus SLIGHT /HPF (NEGATIVE); Nitrite NEGATIVE (NEGATIVE); Protein,Urine Dip NEGATIVE (Negative); Specific Gravity 1.026 (1.005-1.025); Urobilinogen 2 mg/dL (0-1); WBC 0-2 /HPF (0-5)
[2018-07-15 08:18] LABS: BASOPHIL % 0.8 % (0.0-0.4); Basophil (Absolute #) 0.04 (0-0.4); Eosinophil % 1.4 % (0.00-5.0); Eosinophil (Absolute #) 0.07 (0-0.5); Granulocyte Absolute (ANC) 3.34 (1.4-6.9); Hematocrit 40.9 % (42-50); Hemoglobin 14.2 gm/dl (12.5-18.0); Lymphocyte (Absolute #) 0.85 (1.0-4.6); Lymphocytes % 16.6 % (24.0-44.0); Mean Cell Volume 93.6 fl (78-100); Mean Corpuscular Hemoglobin 32.5 pg (26-32); Mean Corpuscular Hgb Concent. 34.7 g/dl (32-36); Monocyte (Absolute #) 0.83 (0.0-1.3); Monocytes % 16.2 % (0.0-12.0); Platelet Count 220 K/mm3 (150-450); Red Blood Count 4.37 M/mm3 (4.1-5.6); Red Cell Distribution Width 12.1 % (11.5-14.0); White Blood Count 5.1 K/mm3 (4.0-10.5)
[2018-07-15 08:26] LABS: Amphetamine,Urine POSITIVE (NEGATIVE)
[2018-07-15 08:30] LABS: ALBUMIN 4.2 g/dL (3.5-5.0); ALKALINE PHOSPHATASE 57 U/L (38-126); ANION GAP 15.3 MEQ/L (5-15); BLOOD UREA NITROGEN 13 mg/dL (9-20); CHLORIDE 104 mmol/L (98-107); Calcium 9.7 mg/dL (8.4-10.2); Carbon Dioxide 24 mmol/L (22-30); Creatinine 1 0.68 mg/dL (0.66-1.25); Glucose 96 mg/dL (74-106); Potassium 3.7 mmol/L (3.5-5.1); SGOT/AST 71 U/L (17-59); SGPT/ALT 79 U/L (0-50); SODIUM 140 mmol/L (137-145); Total Protein 7.6 g/dL (6.3-8.2)
[2018-07-15 08:31] LABS: ACETAMINOPHEN < 10 ug/ml (10-30); ETHYL ALCOHOL < 10 mg/dL (0-10); SALICYLATE < 1.0 mg/dL (2-20)
[2018-07-15 10:07] LABS: A-aADO2 25; ABG HEMOGLOBIN 13.8; ABG POTASSIUM 3.5 (3.5-5.1); ABG SITE RIGHT BRACHIAL; ARTERIAL BLD GAS O2 SATURATION 99.9 % (95-100); ARTERIAL BLOOD GAS BASE EXCESS 1.1 (-2.0-2.0); ARTERIAL BLOOD GAS FIO2 28 %; ARTERIAL BLOOD GAS PCO2 37 mmHg (35-45); ARTERIAL BLOOD GAS PO2 128 mmHg (75-100); ARTERIAL BLOOD GAS pH 7.44 (7.35-7.45); CARBOXYHEMOGLOBIN 3.3 % THgb (0.0-6.9); HCO3- 25.1 (22-28); HGB O2 SAT 96.5 g/dF (94-100); Methhemoglobin 0.1 % (1.4-1.5); paO2 pAO1 0.84
[2018-07-15 11:14] VITALS: BP 147/87; PULSE 82
[2018-07-15 11:29] VITALS: O2SAT 100
--- NOTE | 2018-07-15 21:13 | XRAY ---
Indication: Cough. Comparison: April 27, 2017. Portable apical lordotic chest remains clear. Heart and mediastinal structures within normal limits. Bony thorax intact. No new/acute findings. Impression: Stable nonacute chest.
--- NOTE | 2018-07-15 21:15 | XRAY ---
Indication: Found unresponsive. Multiple contiguous axial images obtained through the head without contrast. Comparison: July 15, 2008. Again normal appearing brain parenchyma, ventricles, and bony calvarium. Visualized paranasal sinuses and mastoid air cells are clear. Impression: Normal CT head without contrast exam. Comment: Preliminary interpretation was made by [facility]. No discrepancy. CTDI 66.12
== END 2018-07-15 11:57 | disposition home or self-care (01) ==
LOC: ED 07:30
DX: F19.10 Other psychoactive substance abuse, uncomplicated (principal); F41.0 Panic disorder [episodic paroxysmal anxiety]; F31.9 Bipolar disorder, unspecified
CPT/HCPCS: 51702; 70450; 80053; 80307; 81001; 82375; 82803; 82805; 85025; 93005; 93041; 96360; 96374; 96375; 96376; 99291; 99292; G0481; P9612; 36000; 36415; 36600; 71045; 99285; J2310; J2405; G0480